=== PATIENT | female | born 1945 | race Caucasian/White ===

== ENCOUNTER 2024-05-01 16:49 | Emergency (ER) | payer MEDICARE ==
[~2024-05-01] VITALS: Ht 157.5 cm; Wt 59.1 kg
[~2024-05-01 16:49] MED LIST: ELIQUIS 5MG PO; IMDUR 30MG30 MG/TAB PO; K-DUR 10 MEQ T10 MEQ PO; LASIX 40MG TABL40 MG PO; LOPRESSOR 225 MG/TAB PO; MS CONTIN 330 MG/TAB PO; PEPCID40 MG PO; PERCOCET 325 MG1 TAB PO; PROTONIX 40MG T40 MG PO; ROBAXIN 50500 MG/TAB PO; ZESTRIL 20MG TA20 MG PO; ZOLOFT 50MG50 MG PO
[2024-05-01 16:55] VITALS: TEMP 97.8
[2024-05-01] MEDS ORDERED: oxyCODONE/Acetaminophen 10-325 MG TAB PO ONE (20:30)
[2024-05-01 20:38] LABS: BASO % 0.1 % (0.0-2.0); EOS % 0.1 % (0.0-4.0); GRAN # 12.5 K/mm3 (1.4-6.5); GRAN % 87.3 % (42.2-75.2); HEMATOCRIT 35.2 % (37.0-47.0); HEMOGLOBIN 10.4 g/dl (12.5-16.0); LYMPH # 0.5 K/mm3 (1.2-3.4); LYMPH % 3.6 % (20.0-51.0); MEAN CELL VOLUME 84 fl (80.0-100.0); MEAN CORPUSCULAR HEMOGLOBIN 25 pg (27-31); MEAN CORPUSCULAR HGB CONC 30 g/dl (33.0-37.0); MEAN PLATELET VOLUME 9.9 fl (7.4-10.4); MONO # 1.2 K/mm3 (0.1-0.6); MONO % 8.3 % (1.7-9.3); PLATELET COUNT 339 K/mm3 (130-400); RED BLOOD COUNT 4.18 M/mm3 (4.10-5.30)
[2024-05-01 20:57] LABS: ALBUMIN 2.8 g/dL (3.4-4.8); BILIRUBIN,TOTAL 0.5 mg/dL (0.2-1.2); CALCIUM 8.8 mg/dL (8.4-10.2); CREATININE, serum 0.73 mg/dL (0.57-1.11); TOTAL PROTEIN 5.7 g/dl (6.2-8.1)
[2024-05-01 22:14] VITALS: BP 161/82; PULSE 94
== END 2024-05-01 22:14 | disposition home or self-care (01) ==
LOC: COL.ER 16:49
PROVIDERS: Family Medicine
DX: F11.23 Opioid dependence with withdrawal (principal)

== ENCOUNTER 2024-05-08 15:38 | Emergency (ER) | payer MEDICARE ==
[~2024-05-08 15:38] MED LIST changes: +Naloxone 0.4 MG/ML VIAL IV ONE
[2024-05-08 15:42] VITALS: TEMP 97.5
[2024-05-08] MEDS ORDERED: NS 1,000 ML IV ONE (15:45)
[2024-05-08 16:18] LABS: MEAN CELL VOLUME 87 fl (80.0-100.0); MEAN CORPUSCULAR HGB CONC 29 g/dl (33.0-37.0); MEAN PLATELET VOLUME 9.7 fl (7.4-10.4); PLATELET COUNT 317 K/mm3 (130-400); RED BLOOD COUNT 3.47 M/mm3 (4.10-5.30); REDCELL DISTRIBUTION WIDTH-CV 17.2 % (11.5-14.5)
[2024-05-08 16:19] LABS: INR 1.2 (0.8-3.0); PROTHROMBIN TIME 12.5 SECONDS (9.7-12.8)
[2024-05-08 16:20] LABS: ALBUMIN 2.8 g/dL (3.4-4.8); BILIRUBIN,TOTAL 0.3 mg/dL (0.2-1.2); CALCIUM 7.7 mg/dL (8.4-10.2); CREATININE, serum 0.8 mg/dL (0.57-1.11); POTASSIUM 4.2 mEq/L (3.5-4.5)
[2024-05-08 16:21] LABS: HEMATOCRIT 30.1 % (37.0-47.0); HEMOGLOBIN 8.8 g/dl (12.5-16.0); MEAN CORPUSCULAR HEMOGLOBIN 25 pg (27-31)
[2024-05-08 16:22] LABS: PARTIAL THROMBOPLASTIN TIME 22.1 SECONDS (26.0-37.0)
[2024-05-08 16:24] LABS: COLLECTION METHOD CLEAN CATCH
[2024-05-08 16:33] LABS: URINE APPEARANCE CLOUDY (CLEAR/HAZY); URINE BLOOD 1+ (NEGATIVE); URINE COLOR Dark Yellow (YELLOW); URINE GLUCOSE TRACE (NEGATIVE); URINE KETONE TRACE (NEGATIVE); URINE NITRATE NEGATIVE (NEGATIVE); URINE PROTEIN(semi-quant) 1+ (NEGATIVE)
[2024-05-08 16:39] LABS: TRICYCLIC ANTIDEPRESS URINE NEGATIVE (NEGATIVE)
[2024-05-08 16:45] LABS: BAND 3 % (0-10); LYMPHOCYTE 3 % (20.0-51.0); NEUTROPHILS 91 % (42.0-75.2)
[2024-05-08] MEDS ORDERED: cefTRIAXone 1 G in Water For Injection,Sterile 10 ML IV ONE (16:45)
[2024-05-08 16:47] LABS: ANISOCYTOSIS 1+; HYPOCHROMIA 3+; PLATELET ESTIMATE NORMAL (NORMAL); SCHISTOCYTES 1+
[2024-05-08 16:48] LABS: OVALOCYTES 1+
[2024-05-08 17:03] LABS: MUCOUS PRESENT (NOT PRESENT); URINE BACTERIA MODERATE /hpf (NONE SEEN); URINE RBC 0-2 /hpf (0-2)
[2024-05-08] MEDS ORDERED: Iohexol 300 - 100 ML VIAL IV ONE (17:24)
[2024-05-08] MEDS ORDERED: NS 100 ML IV SCH (17:27)
[2024-05-08 18:30] VITALS: BP 90/74; PULSE 101
== END 2024-05-08 18:30 | disposition short-term general hospital (02) ==
LOC: COL.ER 15:38
PROVIDERS: Family Medicine
DX: I63.9 Cerebral infarction, unspecified (principal); G81.94 Hemiplegia, unspecified affecting left nondominant side
CPT/HCPCS: J0696; J2310; J7030; Q9967